=== PATIENT | male | born 1965 | race Caucasian/White ===

== ENCOUNTER 2018-12-30 06:20 | Day surgery (SDC) | payer BC ==
[~2018-12-30] VITALS: Ht 188 cm; Wt 102.1 kg
[~2018-12-30 06:20] MED LIST: VALTREX1000 MG PO
[2018-12-30] MEDS ORDERED: ATORVASTATIN CA20 MG PO (06:42)
--- NOTE | 2018-12-30 08:26 | NUR ---
12/30/18 0826 Yudelka Alonzo 0757 PT ARRIVED IN PACU SLEEPY WITH NO C/O'S. ABD SOFT. OXYGEN REMOVED. SATS 95% ON RA. 0810 DR AT BEDSIDE TALKING TO PT. 0820 SITTING UP IN BED SIPPING ON COFFEE. 0825 GETTING DRESSED WITH RN STAND BY ASSIST. NO C/O'S.
--- NOTE | 2018-12-30 09:16 | OR ---
[facility] [address], [place] [address] Signed DATE OF OPERATION: 12/30/2018 SURGEON: Terra Monae MD PREOPERATIVE DIAGNOSES: 1. Villous adenomatous rectal polyp at 10 cm in 2014 (tattoo). 2. Father with possible colon cancer at age 70. POSTOPERATIVE DIAGNOSES: 1. A 5 mm polyp in distal hepatic flexure. 2. A 4 mm polyp at 8 cm. 3. Tattoo at 10 cm. PROCEDURE PERFORMED: Colonoscopy with hot biopsy. ESTIMATED BLOOD LOSS: None. INDICATIONS: Milagros is a 53-year-old gentleman who came to us initially in 2013. He had a moderately large villous adenomatous polyp at 10 cm. That was completely removed and we left a tattoo in place. Also, his dad of lung cancer, but there is a possibility he may have had colon cancer as well at age 70. Milagros returns to the office for followup colonoscopy. He has no lower GI complaints. In the office, I gave Milagros a pamphlet on colonoscopy. We looked at that together along with the risks including, but not limited to gas, bloating, crampy abdominal pain, bleeding, perforation, requiring surgery, and missed diagnosis. We also discussed the need for IV conscious sedation. He had expressed understanding and wished to proceed. DESCRIPTION OF PROCEDURE: Milagros was taken into our endoscopy suite and placed in the left lateral decubitus position. He was given IV sedation with 7 mg of Versed and 125 mcg of fentanyl. A digital rectal exam was performed and his prostate is becoming somewhat indurated and mildly enlarged. The left is more prominent than the right. The adult colonoscope was introduced and advanced all around into the cecum under direct visualization of camera. It took some extra sedation in order to get the scope into the cecum. His prep was good. The scope was slowly withdrawn. The above-mentioned polyps were easily removed with the help of hot biopsy forceps. There was no diverticulosis. We could easily see the tattoo at 10 cm. No evidence of any recurrent polyp at that area. The scope was Electronically Signed By: TERRA MONAE MD 12/30/18 0916 PATIENT NAME: MILAGROS WILSON OPERATIVE REPORT DATE OF : 61 REPORT #: [id number] PHYSICIAN: TERRA MONAE MD PCP: MAGAN ROMERO PA-C REPORT IS CONFIDENTIAL AND NOT TO BE RELEASED WITHOUT AUTHORIZATION [facility] [address], [place] [address] Signed then retroflexed and there was no additional pathology noted above the anal canal. After this, the gas was suctioned out and colonoscope removed. Milagros tolerated the procedure quite well. RECOMMENDATIONS: I will see Milagros back in my office in 7 to 14 days to review his results. He will need endoscopy every 5 years. He can continue his prostate health with his primary care provider. MD LUCI Vsos/ADILENEL /[id number] cc: JESSICA Darby MD Copies: TERRA MONAE MD ~ Electronically Signed By: TERRA MONAE MD 12/30/18 0916 PATIENT NAME: MILAGROS WILSON OPERATIVE REPORT DATE OF : 61 REPORT #: [id number] PHYSICIAN: TERRA MONAE MD PCP: MAGAN ROMERO PA-C REPORT IS CONFIDENTIAL AND NOT TO BE RELEASED WITHOUT AUTHORIZATION
--- NOTE | 2018-12-30 14:07 | NUR ---
PT ALERT, ORIENTED AND SUPPORTED BY HIS DAUGHTER ELMER. PREP SEEMED TO BE UNEVENTFUL, HAD FEW QUESTIONS. PT REQUESTED PRAYER. WILL FOLLOW NEEDED
== END 2018-12-30 08:30 | disposition home or self-care (01) ==
LOC: DS 06:20 → OPS 06:20 → DS 06:45 → OPS 08:30
PROVIDERS: Colon & Rectal Surgery
PROC: 0DBP8ZX Excision of Rectum, Via Natural or Artificial Opening Endoscopic, Diagnostic (ICD-10-PCS; 2018-12-30)
PROC: 0DBL8ZZ Excision of Transverse Colon, Via Natural or Artificial Opening Endoscopic (ICD-10-PCS; principal; 2018-12-30 06:45)
DX: Z12.11 Encounter for screening for malignant neoplasm of colon (principal); D12.3 Benign neoplasm of transverse colon; K62.1 Rectal polyp; Z86.010 Personal history of colon polyps; Z79.899 Other long term (current) drug therapy
CPT/HCPCS: 99153; G0500; J2250; J3010; J7120

== ENCOUNTER 2019-11-25 14:24 | Emergency (ER) | payer BC ==
[~2019-11-25] VITALS: Ht 185.4 cm; Wt 94.3 kg
[~2019-11-25 14:24] MED LIST changes: +ATORVASTATIN CA20 MG PO
[2019-11-25] MEDS ORDERED: NITROGLYCERIN0.4 MG SL (18:14)
--- NOTE | 2019-11-25 20:25 | EKG ---
[facility] [address] [facility] [place], [place] [address] Signed Sinus bradycardia with sinus arrhythmia Otherwise normal ECG No previous ECGs available Confirmed by ANASTASIYA LEE MD ([id number]) on 11/25/2019 8:25:17 PM Electronically Signed By: ANASTASIYA LEE MD 11/25/192024 PATIENT NAME: KATIEMILAGROSDAVID DE LA GARZA Electrocardiogram DATE OF : 61 PHYSICIAN: ANASTASIYA LEE MD REPORT #: [id number] REPORT IS CONFIDENTIAL AND NOT TO BE RELEASED WITHOUT AUTHORIZATION
== END 2019-11-25 18:35 | disposition home or self-care (01) ==
LOC: ED 14:24
DX: R07.89 Other chest pain (principal); Z79.899 Other long term (current) drug therapy
CPT/HCPCS: 71045; 80053; 83735; 84484; 85025; 93005; 93010; 99285-25